=== PATIENT | female | born 1940 | race Caucasian/White ===

== ENCOUNTER 2016-12-03 21:39 | Emergency (ER) | payer MEDICARE ==
[~2016-12-03 21:39] MED LIST: ALDACTONE25 MG PO; BENADRYL-DPS25 MG PO; CIPRO DPS500 MG PO; COMPAZINE10 MG PO; CYMBALTA20 MG PO; DEPAKOTE500 MG PO; DURAGESIC DPS100 MCG TP; KLONOPIN DPS0.5 MG PO; LEVOTHYROXINE100 MCG PO; MICRO-K DPS10 MEQ PO; MOVANTIK25 MG PO; NORCO 5-325 TA1 EACH PO; OYSTER SHELL C500 MG PO; PAMELOR DPS25 MG PO; PROTONIX40 MG PO; ROCALTROL DPS0.5 MCG PO; SURFAK DPS240 MG PO; TOPROL XL DPS50 MG PO; VITAMIN B-121000 MCG PO; ZOFRAN8 MG PO
--- NOTE | 2016-12-04 01:26 | ER ---
ADMIT: 12/03/2016 RM/LOC: ER [facility] MR#: [id number] [facility] [address] [place], [place] [id number] YADI CRUZ [address] [facility] [address] [place] [address] Emergency Room Report SEX: F AGE: 76 : 1940 DATE: 12/03/2016 TIME: 2139 hours. Please refer to my T-sheet for complete H and P. Briefly, the patient is a 76- year-old, who comes in with head pain and dizziness. She actually was getting out of the car from grocery shop and slipped on the curb and fell back and hit her head. This was about 6-8 hours prior to arrival to the emergency department. She lives in assisted living. Apparently, the nurses thought she was unsteady and she had been complaining of dizziness, so they brought her in. No vomiting. She is actually alert and talking to us. No other complaints. PHYSICAL EXAMINATION: VITAL SIGNS: Vital signs are stable. HEENT: She has a contusion on her slightly [id number] posterior occipital region. No step-offs. Otherwise, essentially normal exam. NEUROLOGIC: Alert and oriented. Nonfocal. EMERGENCY DEPARTMENT COURSE: CT of her head was negative. We had a discussion with the family. Actually, Dr. Alanis was consulted, he saw the patient in the ER and allowed her to go home. He is going to see her in the clinic tomorrow. ASSESSMENT: 1. Head contusion, status post fall. 2. Concussion. PLAN: See Annabelle tomorrow. Return if worse. Fall precautions. Basim Donahue MD/ martin JOB #: [id number] CC: Basim Donahue MD, Attending Physician
== END 2016-12-03 23:45 | disposition home or self-care (01) ==
LOC: ER 21:39
DX: S06.0X9A Concussion with loss of consciousness of unspecified duration, initial encounter (principal); S00.93XA Contusion of unspecified part of head, initial encounter; W01.10XA Fall on same level from slipping, tripping and stumbling with subsequent striking against unspecified object, initial encounter; Y92.410 Unspecified street and highway as the place of occurrence of the external cause